=== PATIENT | female | born 1975 | race Caucasian/White ===

== ENCOUNTER 2019-12-11 09:18 | Outpatient (CLI) | payer BC, SELFPAY ==
--- NOTE | ~2019-12-11 | MM_ITS ---
EXAMINATION: MM screening fe BI w cleo HISTORY: Screening mammogram TECHNIQUE: Craniocaudal and mediolateral oblique 3-D tomosynthesis images were obtained and synthetic 2-D images were generated. CAD analysis was submitted and interpreted. COMPARISON: Comparison to multiple prior studies sequentially, with oldest reviewed study dated 09/2015. BREAST PARENCHYMAL COMPOSITION: There are scattered areas of fibroglandular density. FINDINGS: There are new focal asymmetries medially in the right breast on CC view. The left breast is stable without evidence for malignancy. IMPRESSION: 1. New focal asymmetries medially in the right breast on CC view. 2. Additional mammographic views and possible breast ultrasound are recommended. BI-RADS Category 0: Incomplete: Needs additional imaging evaluation. Reviewed, dictated and finalized at location A. IMPRESSION: 1. New focal asymmetries medially in the right breast on CC view. 2. Additional mammographic views and possible breast ultrasound are recommended . BI-RADS Category 0: Incomplete: Needs additional imaging evaluation.
== END 2019-12-11 09:19 | disposition home or self-care (01) ==
LOC: ANHIMG 09:21
PROVIDERS: PCP Internal Medicine; Visit Provider Nurse Practitioner
DX: Z12.31 Encounter for screening mammogram for malignant neoplasm of breast (principal); R92.8 Other abnormal and inconclusive findings on diagnostic imaging of breast
CPT/HCPCS: 77063; 77067

== ENCOUNTER 2020-01-10 12:33 | Outpatient (CLI) | payer BC, SELFPAY ==
--- NOTE | ~2020-01-10 | MMUS_ITS ---
EXAMINATION: MM diagnostic mammo unilat RT, US breast RT complete HISTORY: New focal asymmetry medially in right breast on craniocaudal screening view of 12/11/2019 TECHNIQUE: Additional 3-D tomosynthesis images of the right breast were performed and synthetic 2-D i mages were generated. CAD analysis was submitted and interpreted. High resolution complete right bam st ultrasound was performed. COMPARISON: 12/11/2019 bilateral digital screening mammogram FINDINGS: MAMMOGRAPHIC FINDINGS: No definite reproducible mass is noted mammographically. No architectural distortion or malignant tyra cification, skin thickening or retraction is evident. ULTRASOUND: 2:00 2 cm from nipple: 3 x 4 x 2 mm parallel hypoechoic parallel lesion without internal vascularity or posterior shadowing, likely benign 6:00 3 cm from nipple: 3 x 2 x 4 mm parallel circumscribed hypoechoic lesion without posterior shadow ing, with suggestion of some through transmission, likely a small cyst 11:00 1 cm from nipple: 4 x 4 x 3 mm parallel circumscribed sonolucency without internal vascularity or posterior shadowing. Through transmission suggests a cyst. Subareolar area: 4 x 2 x 3 mm sonolucency without suspicious shadowing, likely a cyst or duct IMPRESSION: 1. Probably benign findings 2. 6 month diagnostic right mammogram and right breast ultrasound follow-up are recommended BI-RADS category 3, probably benign findings. Reviewed, dictated and finalized at location A. IMPRESSION: 1. Probably benign findings 2. 6 month diagnostic right mammogram and right breast ultrasound follow-up are recommended BI-RADS category 3, probably benign findings.
== END 2020-01-10 12:34 | disposition home or self-care (01) ==
PROVIDERS: PCP Internal Medicine; Visit Provider Obstetrics & Gynecology Gynecology
DX: R92.8 Other abnormal and inconclusive findings on diagnostic imaging of breast (principal)
CPT/HCPCS: 76641; 77065

== ENCOUNTER 2020-07-20 11:45 | Outpatient (CLI) | payer BC, SELFPAY ==
--- NOTE | ~2020-07-20 | MMUS_ITS ---
EXAMINATION: MM diagnostic fe RT w pato, US breast RT complete HISTORY: Six-month follow-up of probable benign findings from 01/09/2023 right diagnostic mammogram an d complete right breast ultrasound TECHNIQUE: ML, MLO and craniocaudal 3-D tomosynthesis images of the right breast were performed and s ynthetic 2-D images were generated. CAD analysis was submitted and interpreted. High resolution compl ete right breast ultrasound was performed. COMPARISON: 01/10/2020 right diagnostic digital mammogram and complete right breast ultrasound examina tion FINDINGS: MAMMOGRAPHIC FINDINGS: A circumscribed oval approximately 6.3 mm opacity is noted in the posterior central medial right bam st (craniocaudal Tomosynthesis image 37/80). An approximately 6 mm opacity is suggested in the posterior upper mid right breast (mL Tomosynthesis image 47/83). Possible 4.5 mm mass in upper inner right breast (MLO Tomosynthesis image 56/83). Suggestion of asymmetry/architectural distortion in the upper inner right breast on MLO view (mL Pato synthesis image 50/83), without apparent correlate on the CC projection. ULTRASOUND: There are scattered 5.5 mm lower smaller hypoechoic areas without internal vascularity or suspicious shadowing. IMPRESSION: 1. Probable benign findings 2. 6 month diagnostic right mammogram and right breast ultrasound follow-up are recommended. BI-RADS category 3, probably benign findings. Reviewed, dictated and finalized at location A. MANAGEMENT DIRECTOR IMPRESSION: 1. Probable benign findings 2. 6 month diagnostic right mammogram and right breast ultrasound follow-up are recommended. BI-RADS category 3, probably benign findings.
== END 2020-07-20 11:46 | disposition home or self-care (01) ==
PROVIDERS: PCP Internal Medicine; Visit Provider Obstetrics & Gynecology Gynecology
DX: R92.8 Other abnormal and inconclusive findings on diagnostic imaging of breast (principal)
CPT/HCPCS: 76641; 77061; 77065; G0279

== ENCOUNTER 2020-12-18 15:32 | Outpatient (CLI) | payer BC, SELFPAY ==
--- NOTE | ~2020-12-18 | MM_ITS ---
EXAMINATION: MM diagnostic fe BI w cleo HISTORY: Six-month follow-up for probably benign right breast masses TECHNIQUE: Craniocaudal, mediolateral, and mediolateral oblique 3-D tomosynthesis images of the breas ts were performed and synthetic 2-D images were generated. CAD analysis was submitted and interpreted . COMPARISON: 07/20/2020, 01/10/2020, 12/11/2019, 10/05/2018, 08/29/2017 BREAST PARENCHYMAL COMPOSITION: There are scattered areas of fibroglandular density. FINDINGS: Right breast: There is a stable 8 mm oval, obscured, equal density mass in the posterior third of the central breast 8 cm from the nipple. There has been no suspicious interval change. No new mass is id entified. Left breast: There is no evidence of suspicious mass, calcification, or architectural distortion to suggest malignancy. There has been no suspicious interval change. IMPRESSION: 1. Stable, probably benign right breast mass. 2. Further evaluation with right breast ultrasound is recommended. Patient will return for ultrasound . BI-RADS Category 0: Incomplete: Needs additional imaging evaluation. Reviewed, dictated and finalized at location A. IMPRESSION: 1. Stable, probably benign right breast mass. 2. Further evaluation with right breast ultrasound is recommended. Patient will return for ultrasound. BI-RADS Category 0: Incomplete: Needs additional imaging evaluation.
== END 2020-12-18 15:33 | disposition home or self-care (01) ==
PROVIDERS: PCP Internal Medicine; Visit Provider Nurse Practitioner
DX: R92.8 Other abnormal and inconclusive findings on diagnostic imaging of breast (principal)
CPT/HCPCS: 77062; 77066; G0279

== ENCOUNTER 2021-01-04 13:43 | Outpatient (CLI) | payer BC, SELFPAY ==
--- NOTE | ~2021-01-04 | US_ITS ---
US breast RT complete DATE: 01/04/2021 14:31 INDICATION: Stable probably benign 8 mm obscured equal density right breast mass reported in posterio r third of central breast 8 cm from nipple on 12/28/2020 mammogram TECHNIQUE: Complete right breast ultrasound COMPARISON: 12/28/2020 bilateral diagnostic digital mammogram July 20, 2020 diagnostic right mammogram and complete right breast ultrasound FINDINGS: 12:00 2 cm from nipple: 2.8 mm sonolucency, consistent with small cyst 7:00 4 cm from nipple: Parallel circumscribed 2.1 x 5.3 mm hypoechoic lesion, possibly a small benign lymph node 8:00 6 cm from nipple: Similar hypoechoic 2.7 x 4.1 mm hypoechoic lesion with suggestion of a central fatty hilus, without suspicious internal vascularity or posterior shadowing, benign in appearance IMPRESSION: BI-RADS Category 2: Benign Recommendation: Routine annual mammographic screening Reviewed, dictated and finalized at Location A. Reviewed, dictated and finalized at location A.
== END 2021-01-04 13:44 | disposition home or self-care (01) ==
LOC: ANHIMG 13:48
PROVIDERS: PCP Internal Medicine; Visit Provider Nurse Practitioner
DX: R92.8 Other abnormal and inconclusive findings on diagnostic imaging of breast (principal)
CPT/HCPCS: 76641

== ENCOUNTER 2021-11-19 01:22 | Day surgery (SDC) | payer BC, SELFPAY ==
[2021-11-05 13:37] VITALS: BMI 36.6
--- NOTE | 2021-11-18 14:17 | PM.HPGS ---
History of Present Illness History of Present Illness Consent: Risks, benefits, and alternatives have been discussed and questions answered. Patient agrees to proceed with procedure. Chief complaint: hx of colon polyps Narrative: Clary Zaragoza is a 46 year old female referred for colon cancer screening. Her mother had stage IV colon cancer when she was in her 40s. Review of Systems Review of Systems: All systems reviewed & are unremarkable except as noted in HPI and below PMFSH Social History Social History Smoking status: Never smoker Substance use type: does not use Living arrangements: with family Spiritual care concerns: No Meds Home Medications and Allergies Home Medications Medication Instructions Recorded Confirmed Type sodium sul 1.479 gram-potas ch See Rx Instructions PO .COMPLEX 10/20/21 11/05/21 Rx 0.188 gram-magnes sul 0.225 gram #24 tabs tablet (Sutab) ergocalciferol (vitamin D2) 1,250 1,250 mcg PO DAILY 11/05/21 11/05/21 History mcg (50,000 unit) capsule oxybutynin chloride 10 mg 10 mg PO DAILY 11/05/21 11/05/21 History tablet,extended release 24 hr Allergies Allergy/AdvReac Type Severity Reaction Status Date / Time No Known Allergies Allergy Mild Verified 11/19/21 09:42 Exam Resp: Auscultation: clear to auscultation bilaterally Cardio: Rate: regular rate Rhythm: regular rhythm GI: GI Palp: Yes Soft to palpation and No Tenderness to palpation present (GI) Assessment and Plan Assessment and plan (1) Colon cancer screening: Code(s): Z12.11 - Encounter for screening for malignant neoplasm of colon Status: Acute Assessment and Plan: Colonoscopy with possible biopsy or polypectomy or cautery or injection of substances.
[2021-11-19 09:43] VITALS: BP 115/76; PULSE 73; RESP 16; TEMP 36.3; O2SAT 100; BMI 36.1
[2021-11-19] MEDS: LACTATED RINGERS 1,000 ML 150 ML IV CONT (09:56)
--- NOTE | 2021-11-19 10:14 | P.PNAN_ITS ---
Anes - Initial Pre Proc Eval Procedure: Operation Date: 11/19/21 10:30 Proposed Procedures p Screening Colonoscopy - Vinny Hopkins MD Date/Time: 11/19/21 10:14 Surgeon: Vinny Hopkins MD Pre Op Diagnosis: hx of colon polyps Patient Data Age: 46 Gender: F Height: 1.57 m Weight: 89.7 kg Last Vital Signs Temp 97.3 F L 11/19/21 09:43 Pulse 73 11/19/21 09:43 Resp 16 11/19/21 09:43 BP 115/76 11/19/21 09:43 Pulse Ox 100 11/19/21 09:43 O2 Del Method Room Air 11/19/21 09:43 Allergies Allergy/AdvReac Type Severity Reaction Status Date / Time No Known Allergies Allergy Mild Verified 11/19/21 09:42 Home Medications Medication Instructions Recorded Confirmed Type sodium sul 1.479 gram-potas ch See Rx Instructions PO .COMPLEX 10/20/21 11/05/21 Rx 0.188 gram-magnes sul 0.225 gram #24 tabs tablet (Sutab) ergocalciferol (vitamin D2) 1,250 1,250 mcg PO DAILY 11/05/21 11/05/21 History mcg (50,000 unit) capsule oxybutynin chloride 10 mg 10 mg PO DAILY 11/05/21 11/05/21 History tablet,extended release 24 hr Patient hx anesthesia problems: none Family hx anesthesia problems: none Results Review: All pre-operative results and documents have been reviewed as part of the pre- operative evaluation. PMFSH Social History Social History Smoking status: Never smoker Substance use type: does not use Living arrangements: with family Spiritual care concerns: No Anes - Eval Final PreProcedure Day of Procedure 11/19/21 10:14 Patient weight: obese Heart: regular rate and rhythm Lungs: clear to auscultation Airway: Mallampati scale class II Neurological: alert and oriented Last oral intake: >/= 8 hours ASA classification: II Emergent: no Anesthetic plan: proceed Anesthesia type and monitoring: general GIVS and standard monitoring Results Review: All pre-operative results and documents have been reviewed as part of the pre- operative evaluation. Informed Consent: The patient's anesthetic plan and its attendant risks and benefits were discussed with the patient/family/POA. Questions were solicited and answers provided to the satisfaction of the patient/family/POA.
[2021-11-19] MEDS: SIMETHICONE ORAL SUSPENSION 20 MG/0.3 ML 30 ML BOTTLE 0.6 ML IRRIGATION (10:33)
[2021-11-19 10:40] VITALS: BP 92/59; PULSE 83; RESP 26; O2SAT 98
[2021-11-19 10:50] VITALS: BP 111/71; PULSE 67; RESP 20; O2SAT 95
[2021-11-19 11:00] VITALS: BP 113/82; PULSE 69; RESP 19; O2SAT 96
== END 2021-11-19 11:09 | disposition home or self-care (01) ==
PROVIDERS: PCP Internal Medicine; Visit Provider Internal Medicine Gastroenterology
PROC: 0DJD8ZZ Inspection of Lower Intestinal Tract, Via Natural or Artificial Opening Endoscopic (ICD-10-PCS; CPT 45378; principal; 2021-11-19 10:30)
DX: Z12.11 Encounter for screening for malignant neoplasm of colon (principal); K62.1 Rectal polyp; Z80.0 Family history of malignant neoplasm of digestive organs; E66.9 Obesity, unspecified; Z68.36 Body mass index [BMI] 36.0-36.9, adult
CPT/HCPCS: 45380; 88305; J2704; J7120

== ENCOUNTER 2022-02-16 14:45 | Outpatient (CLI) | payer BC, SELFPAY ==
--- NOTE | ~2022-02-16 | MM_ITS ---
EXAMINATION: MM screening fe BI w cleo HISTORY: Screening mammogram TECHNIQUE: Craniocaudal and mediolateral oblique 3-D tomosynthesis images were obtained and synthetic 2-D images were generated. CAD analysis was submitted and interpreted. COMPARISON: 01/04/2021 complete right breast ultrasound examination 12/18/2020 bilateral diagnostic mammogram 07/20/2020 diagnostic right mammogram and complete right breast ultrasound examination 01/10/2020 diagnostic right mammogram and complete right breast ultrasound 12/11/2019, 10/05/2018 bilateral screening mammogram examinations BREAST PARENCHYMAL COMPOSITION: There are scattered areas of fibroglandular density. FINDINGS: Approximately 4.6 x 7.7 mm opacity is noted in the very posterior aspect of the inner mid r ight breast. Diagnostic right mammogram and right breast ultrasound examination are recommended Otherwise there is no evidence of suspicious mass, calcification, or architectural distortion to sugg est malignancy in either breast. There has been no other suspicious interval change. IMPRESSION: 1. 0.6 x 7.7 mm opacity very posterior aspect of inner mid right breast 2. Diagnostic right mammogram and right breast ultrasound examination are recommended BI-RADS Category 0: Incomplete: Needs additional imaging evaluation. Reviewed, dictated and finalized at location A. IMPRESSION: 1. 0.6 x 7.7 mm opacity very posterior aspect of inner mid right breast 2. Diagnostic right mammogram and right breast ultrasound examination are recom mended BI-RADS Category 0: Incomplete: Needs additional imaging evaluation.
== END 2022-02-16 14:46 | disposition home or self-care (01) ==
PROVIDERS: PCP Internal Medicine; Visit Provider Obstetrics & Gynecology Gynecology
DX: Z12.31 Encounter for screening mammogram for malignant neoplasm of breast (principal); R92.8 Other abnormal and inconclusive findings on diagnostic imaging of breast
CPT/HCPCS: 77063; 77067

== ENCOUNTER 2022-03-09 12:44 | Outpatient (CLI) | payer BC, SELFPAY ==
--- NOTE | ~2022-03-09 | MMUS_ITS ---
EXAMINATION: MM diagnostic fe RT w cleo, US breast RT complete HISTORY: 0.6 x 7.7 mm asymmetric mammographic opacity in the very posterior aspect of the inner mid r ight breast on 02/16/2022 screening mammogram TECHNIQUE: Additional 3-D tomosynthesis images of the right breast were performed and synthetic 2-D i mages were generated. CAD analysis was submitted and interpreted. High resolution complete right bam st ultrasound including all 4 quadrants and subareolar area was performed. COMPARISON: 02/16/2022 bilateral screening mammogram 12/28/2020 diagnostic bilateral mammogram and complete right breast ultrasound examination FINDINGS: MAMMOGRAPHIC FINDINGS: No suspicious reproducible mass or architectural distortion is evident on these supplemental views. T he asymmetric density appears to represent probable normal fibroglandular stroma. ULTRASOUND: No suspicious mass or shadowing, cyst or other significant sonographic abnormality of the right breas t is detected. IMPRESSION: 1. No mammographic evidence of malignancy 2. Routine mammographic screening is recommended BI-RADS Category 1: Negative Reviewed, dictated and finalized at location A. IMPRESSION: 1. No mammographic evidence of malignancy 2. Routine mammographic screening is recommended BI-RADS Category 1: Negative
== END 2022-03-09 12:45 | disposition home or self-care (01) ==
PROVIDERS: PCP Internal Medicine; Visit Provider Obstetrics & Gynecology Gynecology
DX: R92.8 Other abnormal and inconclusive findings on diagnostic imaging of breast (principal)
CPT/HCPCS: 76641; 77061; 77065; G0279

== ENCOUNTER 2023-06-01 09:00 | Outpatient (CLI) | payer BC, SELFPAY ==
--- NOTE | ~2023-06-01 | MM_ITS ---
EXAMINATION: MM screening fe BI w cleo HISTORY: Screening mammogram TECHNIQUE: Craniocaudal and mediolateral oblique 3-D tomosynthesis images were obtained and synthetic 2-D images were generated. CAD analysis was submitted and interpreted. COMPARISON: 03/09/2022 diagnostic right mammogram and complete right breast ultrasound examination, re ported negative 02/16/2022 bilateral screening mammogram 01/04/2021 complete right breast ultrasound examination 12/18/2020 diagnostic bilateral mammogram 07/20/2020 diagnostic right mammogram and complete right breast ultrasound examination 01/10/2020 diagnostic right mammogram and complete right breast ultrasound examination 12/11/2019 bilateral screening mammogram BREAST PARENCHYMAL COMPOSITION: There are scattered areas of fibroglandular density. FINDINGS: There is no evidence of suspicious mass, calcification, or architectural distortion to sugg est malignancy in either breast. There has been no suspicious interval change. IMPRESSION: 1. No mammographic evidence of malignancy. 2. Recommend routine screening mammography in one year. BI-RADS Category 1: Negative Reviewed, dictated and finalized at location A. HOUSE SUPERVISOR
== END 2023-06-01 09:01 | disposition home or self-care (01) ==
PROVIDERS: PCP Internal Medicine; Visit Provider Advanced Practice Midwife
DX: Z12.31 Encounter for screening mammogram for malignant neoplasm of breast (principal)
CPT/HCPCS: 77063; 77067

== ENCOUNTER 2023-12-18 08:09 | Outpatient (CLI) | payer BC, SELFPAY ==
--- NOTE | ~2023-12-18 | US_ITS ---
US pelvic complete w TV Ordering provider: Lina Gongora CNM History: . 1 cm firm mass,round,8-10 cm inner vagina . Comparison: None. Technique: Transabdominal and endovaginal ultrasound of the pelvis (Doppler ultrasound interrogation techniques used as needed for this exam.) FINDINGS: CERVIX: Normal. UTERUS: Measures 11x 5.2x 6.3 cm in length which is within normal limits and is anteverted. No myome trial masses. ENDOMETRIUM: Normal in thickness measuring 1.4 mm. (Note: the premenopausal endometrium may measure u p to 16 mm when in the secretory phase.) No endometrial masses, cysts or fluid. CUL DE SAC: No free fluid. RIGHT OVARY: Not visualized. LEFT OVARY: Normal in size measuring 4.5x 2.1x 2.50 cm. Normal echotexture. Doppler vascular flow pre sent. Complex area with blood flow measuring 2.1 x 2.2 x 2 cm. ADNEXA: Normal. No mass. IMPRESSION: Complex cyst in the left ovary most likely hemorrhagic. Follow-up advised. Otherwise, normal pelvic u ltrasound. Reviewed, dictated and finalized at location A. IMPRESSION: Complex cyst in the left ovary most likely hemorrhagic. Follow-up advised. Othe rwise, normal pelvic ultrasound.
== END 2023-12-18 08:10 ==
PROVIDERS: PCP Family Medicine; Visit Provider Advanced Practice Midwife
DX: R19.00 Intra-abdominal and pelvic swelling, mass and lump, unspecified site (principal); N83.202 Unspecified ovarian cyst, left side
CPT/HCPCS: 76830; 76856

== ENCOUNTER 2024-01-29 14:55 | Outpatient (CLI) | payer BC, SELFPAY ==
--- NOTE | ~2024-01-29 | US_ITS ---
EXAMINATION: US pelvic complete w TV DATE: 01/29/2024 15:27 INDICATION: Left ovarian cyst and vaginal wall mass. TECHNIQUE: Multiple transabdominal and transvaginal sonographic images of the pelvis were obtained. COMPARISON: Ultrasound 12/18/2023 FINDINGS: TRANSABDOMINAL ULTRASOUND: The uterus measures 10.3 x 5.5 x 6.3 cm. There is no free fluid in the pelvis. TRANSVAGINAL ULTRASOUND: The endometrial complex measures 15 mm in thickness. The right ovary measures 3.0 x 1.9 x 2.5 cm. The left ovary measures 2.6 x 1.6 x 2.6 cm. There is normal vascular flow in the ovaries. At the cervix, there is a 1.8 x 2.0 x 2.8 cm hypoechoic subserosal mass. IMPRESSION: 1. 2.8 cm subserosal mass of the cervix, likely a fibroid. 2. Normal ovaries. Reviewed, dictated and finalized at location A.
== END 2024-01-29 14:56 ==
LOC: MICIMG 14:56
PROVIDERS: PCP Advanced Practice Midwife; Visit Provider Advanced Practice Midwife
DX: N83.202 Unspecified ovarian cyst, left side (principal)
CPT/HCPCS: 76830; 76856

== ENCOUNTER 2024-06-03 08:50 | Outpatient (CLI) | payer BC, SELFPAY ==
--- NOTE | ~2024-06-03 | MM_ITS ---
EXAMINATION: MM screening [facility] BI w cleo HISTORY: Screening TECHNIQUE: Craniocaudal and mediolateral oblique 3-D tomosynthesis images were obtained and synthetic 2-D images were generated. CAD analysis was submitted and interpreted. COMPARISON: Examination was compared with multiple prior studies, performed most recently on 06/01/20 and dating back to 12/11/2019 BREAST PARENCHYMAL COMPOSITION: The breasts are extremely dense, which lowers the sensitivity of mamm ography. FINDINGS: Bulky calcification within the upper inner right breast, stable and benign in appearance. Otherwise stable parenchymal pattern without suspicious microcalcifications, architectural distortion , discrete masses or significant asymmetry. IMPRESSION: 1. No mammographic evidence of malignancy. 2. Recommend routine screening mammography in one year. BI-RADS Category 2: Benign findings. Reviewed, dictated and finalized at location A. L HOLE GAUGER
--- OUTSIDE RECORDS SUMMARY | 2024-06-10 22:13 | XMS_ITS | Encounter Summary ---
Author Organization [facility] Address [address] [place] [address] Phone Care Team Providers Care Clinical Education Specialist Name Role Phone Unavailable Primary Care Provider Unavailabl e Reason for Visit * Reason Onset Date Comments COVID-19 06/21/2020 Cough 06/21/2020 Encounter Details Date Type Department Care Team (Late st Contact Info) Description 06/21/2020 Nurse Triage [facility] Digital Contact [facility] [address] [place] [address] Kasi Couch MD [address] [place] [address] [address] [place] [address] COVID-19; Cough Social History Tobacco Use Types Packs/Day Years Used Date Smoking Tobacco: Never Assessed Comments Unknown Sex and Gender Information Value Date Recorded Sex Assigned at Not on file Legal Sex Female 9:31 AM CDT Gender Identity Not on file Sexual Orientation Not on file COVID-19 Exposure Response Date Recorded In the last month, have you been in contact with someone who was confirmed or suspected to have Coronavirus / COVID-19? No / Unsure 06/21/2020 9:12 AM SKI TOPPER documented as of this encounter Miscellaneous Notes * Telephone Encounter - Cassandra Lopez RN - 06/21/2020 9:12 AM CST Images from the original note were not included. Travel Screening Question Response In the last month, have you been in contact with someone who was confirmed or suspected to have Coronavirus / COVID-19? No / Unsure Have you had a COVID-19 viral test in the last 14 days? Yes - Positive result Do you have any of the following new or worsening symptoms? Cough;Loss of smell;Loss of taste;Shortness of breath Have you traveled internationally in the last month? No Travel History Travel since 05/21/20 No documented travel since 05/21/20 Is the caller new to [facility]? No Screening Results: COVID-19 LIKE SYMPTOMS Nurse to triage SITUATION: Patient calling with cough, nasal congestion BACKGROUND: Patient is positive for covid and would like to ask questions ASSESSMENT: Symptom Description / Location: cough, nasal congestions, chest tightness with mild pain and mild shortness of breath Pain (0-10): mild chest tightness and pressure ( feels like indigestion Temp: denies temperature Treatment / Response: none RECOMMENDATION:Reviewed guideline home care advice. Advised that patient isolate from other family members that they live with.Reviewed CDC isolation recommendations. Encouraged patient to practice wearing a mask,social distancing. Good hand washing. Discussed eating on disposable dishes, not preppi ng food for others, cleaning all surfaces in home that they touch when moving through the home. Advised that patient call back if fever elevated to 103, shortness of breath occurs. Discussed pushing fluids, taking vitamin C , taking tylenol for pain and fever. Reviewed hotline number with patient [phone] and told patient to call back anytime that they have questions and they will be put in touch with a nurse 02/01. Caller verbalizes understanding of the above information. CASSANDRA LOPEZ RN Reason for Disposition ??? [1] COVID-19 infection diagnosed or suspected AND [2] mild symptoms (fever, cough) AND [3] no trouble breathing or other complications Protocols used: CORONAVIRUS (COVID-19) - DIAGNOSED OR [id number] TOPPER documented in this encounter Plan of Treatment Not on file documented as of this encounter Visit Diagnoses Not on filedocumented in this encounter
--- OUTSIDE RECORDS SUMMARY | 2024-06-10 22:13 | XMS_ITS | Encounter Summary ---
Author Organization [facility] Address [address] [place] [address] Care Team Providers Care Asset Protection Manager Name Role Phone Unavailable Primary Care Provider Unavailabl e Encounter Details Date Type Department Care Team (Late st Contact Info) Description 04/08/2020 10:00 AM CDT Rapid Evaluation [place] [facility] Community Testing [facility] [address] [place] [address] Social History Tobacco Use Types Packs/Day Years Used Date Smoking Tobacco: Never Assessed Comments Unknown Sex and Gender Information Value Date Recorded Sex Assigned at Not on file Legal Sex Female 9:31 AM CDT Gender Identity Not on file Sexual Orientation Not on file documented as of this encounter Plan of Treatment Not on file documented as of this encounter Visit Diagnoses Not on filedocumented in this encounter
--- OUTSIDE RECORDS SUMMARY | 2024-06-10 22:13 | XMS_ITS | Encounter Summary ---
Author Organization [facility] Address [address] [place] [address] Care Team Providers Care Green Chain Worker Name Role Phone Unavailable Primary Care Provider Unavailabl e Reason for Visit * Reason Comments URI for 14 days Encounter Details Date Type Department Care Team (Late st Contact Info) Description 07/07/2018 10:40 AM LECTURER IN COMPUTER SCIENCE Office Visit [facility] AT [address] [phone] Provider, Johny Garibay [place] Lower respiratory infection (Primary Dx) Social History Tobacco Use Types Packs/Day Years Used Date Smoking Tobacco: Former Smokeless Tobacco: Never Sex and Gender Information Value Date Recorded Sex Assigned at Not on file Gender Identity Not on file Sexual Orientation Not on file documented as of this encounter Last Filed Vital Signs Vital Sign Reading Time Taken Comments Blood Pressure 112/76 07/07/2018 10:50 AM LECTURER IN COMPUTER SCIENCE Pulse 87 07/07/2018 10:50 AM LECTURER IN COMPUTER SCIENCE Temperature 37.2 ??C (98.9 ??F) 07/07/2018 10:50 AM C Respiratory Rate 16 07/07/2018 10:50 AM LECTURER IN COMPUTER SCIENCE Oxygen Saturation 98% 07/07/2018 10:50 AM LECTURER IN COMPUTER SCIENCE Inhaled Oxygen Concentration - - Weight 85.3 kg (188 lb) 07/07/2018 10:50 AM LECTURER IN COMPUTER SCIENCE Height 157.5 cm (5' 2 ) 07/07/2018 10:50 AM LECTURER IN COMPUTER SCIENCE Body Mass Index 34.39 07/07/2018 10:50 AM LECTURER IN COMPUTER SCIENCE documented in this encounter Patient Instructions * Patient Instructions* Blayne Simeon APRN-ADDISON - 07/07/2018 11:03 AM LECTURER IN COMPUTER SCIENCE Acute Cough LOADING SHOVEL OILER: An acute cough can last up to 3 weeks. Common causes of an acute cough include a cold, allergies, or a lung infection. Seek care immediately if: ?? You have trouble breathing or feel short of breath. ?? You cough up blood, or you see blood in your mucus. ?? You faint or feel weak or dizzy. ?? You have chest pain when you cough or take a deep breath. ?? You have new wheezing. Contact your healthcare provider if: ?? You have a fever. ?? Your cough lasts longer than 4 weeks. ?? Your symptoms do not improve with treatment. ?? You have questions or concerns about your condition or care. Treatment: An acute cough usually goes away on its own. Ask your healthcare provider about medicines you can take to decrease your cough. You may need medicine to stop the cough, decrease swelling inyour airways, or help open your airways. Medicine may also be given to help you cough up mucus. If you have an infection caused by bacteria, you may need antibiotics. Manage your symptoms: ?? Do not smoke and stay away from others who smoke. Nicotine and other chemicals in cigarettes andcigars can cause lung damage and make your cough worse. Ask your healthcare provider for information if you currently smoke and need help to quit. E-cigarettes or smokeless tobacco still contain nicotine. Talk to your healthcare provider before you use these products. ?? Drink extra liquids as directed. Liquids will help thin and loosen mucus so you can cough it up.Liquids will also help prevent dehydration. Examples of good liquids to drink include water, fruit juice, and broth. Do not drink liquids that contain caffeine. Caffeine can increase your risk for dehydration. Ask your healthcare provider how much liquid to drink each day. ?? Rest as directed. Do not do activities that make your cough worse, such as exercise. ?? Use a humidifier or vaporizer. Use a cool mist humidifier or a vaporizer to increase air moisture in your home. This may make it easier for you to breathe and help decrease your cough. ?? Eat 2 to 5 mL of honey 2 times each day. Honey can help thin mucus and decrease your cough. ?? Use cough drops or lozenges. These can help decrease throat irritation and your cough. Follow up with your healthcare provider as directed: Write down your questions so you remember to ask them during your visits. ?? Copyright [employer] 2018 Information is for End User's use only and may not be sold, redistributed or otherwise used for commercial purposes. All illustrations and images included in CareNotes?? are the copyrighted property of [employer] or [employer] The above information is an blind aide only. It is not intended as medical advice for individual conditions or treatments. Talk to your doctor, nurse or pharmacist before following any medical regimen to see if it is safe and effective for you. URER IN COMPUTER SCIENCE documented in this encounter Progress Notes * Blayne Simeon APRN-CNP - 07/07/2018 10:50 AM CST Subjective: Clary Zaragoza is a 42 y.o. female who presents for evaluation: Chief Complaint Patient presents with ??? URI for 14 days Primary Care Physician is Kasi Couch MD. Symptoms include Chest cold , started 14 days, can't take deep breath due to cough, worse at nighttime. Feels like she is getting swollen tender gland on left side of neck. Pt also gets phlegm up with cough at times, and it is a yellow color. Onset of symptoms was 14 days ago, unchanged since that time. no fever. She is drinking plenty of fluids. Evaluation to date: none. Treatment to date: mucine- d, otc expectorant, steam inhalation, fluids No Known Allergies Outpatient Prescriptions Marked as Taking for the 07/07/18 encounter (Office Visit) with Provider, Johny Burgess Medication Sig ??? azithromycin (ZITHROMAX) 250 mg tablet Take by mouth as directed for 5 days 2 tablets day 1, then 1 tablet daily for 4 days ??? benzonatate (TESSALON) 200 MG capsule Take 1 capsule by mouth 3 times daily as needed for Cough ??? OXYBUTYNIN CHLORIDE PO ??? Pediatric Multiple Vit-Vit C (VITAMIN DAILY PO) ??? predniSONE (DELTASONE) 20 MG tablet Take 2 tablets by mouth once daily for 5 days Past Medical History: Diagnosis Date ??? Overactive bladder Social History Social History ??? Marital status: Spouse name: N/A ??? Number of children: N/A ??? Years of education: N/A Occupational History ??? Not on file. Social History Main Topics ??? Smoking status: Former Smoker ??? Smokeless tobacco: Never Used ??? Alcohol use Not on file ??? Drug use: Not on file ??? Sexual activity: Not on file Other Topics Concern ??? Not on file Social History Narrative ??? No narrative on file Medications reviewed. Review of Systems Pertinent items are noted in HPI Constitutional: Negative Eyes: Negative Ears, nose, mouth, and throat: Negative Respiratory: Positive for acute cough, yellowish sputum production, pt feels like she can't take a deep breath due to it triggering cough, cough is worse at night time. Cardiovascular: Negative Gastrointestinal: Negative Hematologic/lymphatic: Negative Musculoskeletal:Negative Neurological: Negative Objective: BP 112/76 (BP SITE: LEFT ARM, BP POSITION: SITTING, BP CUFF SIZE: 11) Pulse 87 Temp 98.9 ??F (37.2 ??C) (Oral) Resp 16 Ht 1.575 m (5' 2 ) Wt 85.3 kg (188 lb) SpO2 98% BMI 34.39 kg/m2 Skin: Physical Exam Exam General appearance: alert, cooperative, no distress, oriented to person, place, and time, wellappearing Head: normocephalic, without trauma Eyes: sclera and conjunctiva clear, EOMI and PERRLA, lids normal Ears: canals clear, tympanic membranes normal, hearing intact to voice Nose: nares open; no septal deviation is noted, nasal mucosa not inflamed, no maxillary tenderness Throat: no mucous membrane abnormalities, lips, mucosa, and tongue normal; teeth and gums normal Neck: range of motion is intact, Nodes: mild, benign-appearing anterior cervical adenopathy, tender to palpation on left. Lungs: breath sounds slightly diminished on left lower lobe; no rales or wheezes, respirations are unlabored. Non productive cough noted during exam. Pt is able to hold a conversation without difficulty. Heart: regular rhythm, normal S1 and S2, without murmurs, gallops or rubs Neurologic: mental status normal; alert and oriented X 3 Assessment: . Encounter Diagnoses Name Primary? Lower respiratory infection Yes Plan: Discussed dx and tx of URIs Discussed the importance of avoiding unnecessary abx therapy. Discussed viral cough can last up to 4 weeks. Suggested symptomatic OTC remedies. Antibiotics per orders. RTC prn. Drink plenty of fluids and get plenty of rest. If you begin to run a fever or if symptoms worsen, such as difficulty breathing or shortness of breath, seek medial attention as soon as possible. Honey can be used to help with cough. The honey (2.5 to 5 ml [0.5 to 1 teaspoon]) can be given straight or diluted in liquid (eg, tea, juice) Humidifier may be helpful especially at night If symptoms persist or worsen at any time, follow up with a health care provider, clinic or emergency care Risk and possible side effects of prednisone discussed with patient. Pt consents to treatment. Pt. Educated on how to take medication. Continue to follow up with Kasi Couch MD as directed. After Visit Summary reviewed with patient. The patient indicates understanding of these issues and agrees with the plan. Patient discharged to Home .PHILL Mcrae 07/07/2018 12:25 PM Orders Placed This Encounter ??? PULSE OXIMETRY - POINT OF CARE (AMB) ??? azithromycin (ZITHROMAX) 250 mg tablet Sig: Take by mouth as directed for 5 days 2 tablets day 1, then 1 tablet daily for 4 days Dispense: 1 kit Refill: 0 ??? predniSONE (DELTASONE) 20 MG tablet Sig: Take 2 tablets by mouth once daily for 5 days Dispense: 10 tablet Refill: 0 ??? benzonatate (TESSALON) 200 MG capsule Sig: Take 1 capsule by mouth 3 times daily as needed for Cough Dispense: 30 capsule Refill: 0 Recent Results (from the past 24 hour(s)) PULSE OXIMETRY - POINT OF CARE (AMB) Collection Time: 07/07/18 12:24 PM Result Value Ref Range Oximetry POCT 98 0 - 100 % QC Verified Yes Yes URER IN COMPUTER SCIENCE documented in this encounter Miscellaneous Notes * Addendum Note - Blayne Simeon APRN-CNP - 07/07/2018 12:25 PM CSTAddended by: BLAYNE SIMEON on: 07/07/2018 12:25 PM Modules accepted: Orders URER IN COMPUTER SCIENCE documented in this encounter Plan of Treatment Not on file documented as of this encounter Procedures Procedure Name Priority Date/Time Associated Diagnosis Comments PULSE OXIMETRY - POINT OF CARE (AMB) Routine 07/07/2018 12:24 PM LECTURER IN COMPUTER SCIENCE Lower respiratory infection documented in this encounter Results * PULSE OXIMETRY - POINT OF CARE (AMB) (07/07/2018 12:24 PM LECTURER IN COMPUTER SCIENCE) Oximetry POCT 98 0 - 100 % QC Verified Yes Yes Blood BLOOD SPECIMEN / Unknown 07/07/2018 12:24 PM LECTURER IN COMPUTER SCIENCE Blayne Simeon TIMING ADJUSTER-SAMMYING MACHINE OPERATOR LAB - POINT OF CA RE ORDERABLES documented in this encounter Visit Diagnoses Diagnosis Lower respiratory infection- Primary Other diseases of respiratory system, not elsewhere classified documented in this encounter
--- OUTSIDE RECORDS SUMMARY | 2024-06-10 22:13 | XMS_ITS | Encounter Summary ---
Author Organization [facility] Care Team Providers Care Mine Geologist Name Role Phone Unavailable Primary Care Provider Unavailabl e Encounter Details Date Type Department Care Team (Latest Contact Info) Description 06/21/2020 Travel Social History Tobacco Use Types Packs/Day Years [...] COVID-19? No / Unsure 06/21/2020 9:12 AM MANAGER ADVANCED documented as of this encounter Plan of Treatment Not on file documented as of this encounter Visit Diagnoses Not on filedocumented in this encounter
--- OUTSIDE RECORDS SUMMARY | 2024-06-10 22:13 | XMS_ITS | Encounter Summary ---
Author Organization [facility] Address [address] [place] [address] Care Team Providers Care Tool Maintenance Technician Name Role Phone Unavailable Primary Care Provider Unavailabl e Encounter Details Date Type Department Care Team (Late st Contact Info) Description 05/31/2020 11:00 AM FINANCIAL COORDINATOR Rapid Evaluation [place] [facility] Community Testing [facility] [address] [place] [address] Social History Tobacco Use Types Packs/Day Years [...]
--- OUTSIDE RECORDS SUMMARY | 2024-06-10 22:13 | XMS_ITS | Clinical Summary ---
Author Organization [facility] Address [address] [place] [address] Care Team Providers Care Packing Tractor Machine Operator Name Role Phone Unavailable Primary Care Provider Unavailabl e Source Comments [facility],non-owned Affiliates and Associated Physician Practices is amultiple site organization consisting of ambulatory clinics and hospital sitesin [place], [place], [place] and [place]. This disclosure is being madepursuant to the Care Everywhere program and may not contain all information available regarding this patient. Last updated 18.[facility] Allergies No known active allergies Medications * Be aware that medications may not be up to date on this document. Alwaysverify current medications with the patient. Medication Sig Dispensed Refills Start Date End Date Status OXYBUTYNIN CHLORIDE PO Active Pediatric Multiple Vit-Vit C (VITAMIN DAILY PO) Active benzonatate (TESSALON) 200 MG capsuleIndications:Lo wer respiratory infection Take 1 capsule by mouth 3 times daily as needed for Cough 30 capsule 07/07/2018 Active Family History Medical History Relation Name Comments Cancer - Colon Mother Relation Name Status Comments Mother Social History Tobacco Use Types Packs/Day Years Used Date Smoking Tobacco: Former Smokeless Tobacco: Never Sex and Gender Information Value Date Recorded Sex Assigned at Not on file Gender Identity Not on file Sexual Orientation Not on file Last Filed Vital Signs Vital Sign Reading Time Taken Comments Blood Pressure 112/76 07/07/2018 10:50 AM TECHNICAL SALES SUPPORT SPECIALIST Pulse 87 07/07/2018 10:50 AM TECHNICAL SALES SUPPORT SPECIALIST Temperature 37.2 ??C (98.9 ??F) 07/07/2018 10:[address] Respiratory Rate 16 07/07/2018 10:50 AM TECHNICAL SALES SUPPORT SPECIALIST Oxygen Saturation 98% 07/07/2018 10:50 AM TECHNICAL SALES SUPPORT SPECIALIST Inhaled Oxygen Concentration - - Weight 85.3 kg (188 lb) 07/07/2018 10:50 AM TECHNICAL SALES SUPPORT SPECIALIST Height 157.5 cm (5' 2 ) 07/07/2018 10:50 AM TECHNICAL SALES SUPPORT SPECIALIST Body Mass Index 34.39 07/07/2018 10:50 AM TECHNICAL SALES SUPPORT SPECIALIST Plan of Treatment Health Maintenance Due Date Last Done Comments COLOGUARD (AGES 45-75) - COL ON CA SCREENING 1976 COLON MONITORING 1976 COLONOSCOPY - COLON CA SCREENING 1976 CT COLONOGRAPHY - COLON CA SCREENING 1976 Colorectal Cancer Screening 1976 FIT - COLON CA SCREENING 1976 FLEX SIG - COLON CA SCREENING 1976 LIPID TESTING 1976 MAMMOGRAM 1976 HIV SCREENING 08/17/1991 HEPATITIS C SCREENING 08/12/1994 DTAP/TDAP/TD VACCINES (1 - Tdap) 08/17/1995 HEPATITIS B VACCINE (1 of 3 - 19+ 3-dose series) 08/17/1995 PAP with HPV 2006 SCREENING FOR DIABETES 07/07/2018 DEPRESSION SCREENING 06/12/2023 COVID-19 VACCINE (1 - 2023-2 5 season) 2024 INFLUENZA VACCINE (#1) 2024 ZOSTER VACCINE (1 of 2) 2026 HIB VACCINE Aged Out No longer eligi ble based on patient's age to complete this topic HPV VACCINE Aged Out No longer eligi ble based on patient's age to complete this topic MENINGOCOCCAL VACCINE Aged Out No mili ezekiel eligible based on patient's age to complete this topic PNEUMOCOCCAL VACCINE Aged Out No long er eligible based on patient's age to complete this topic
--- OUTSIDE RECORDS SUMMARY | 2024-06-10 22:13 | XMS_ITS | Encounter Summary ---
Author Organization [facility] Address [address] [place] [address] Care Team Providers Care Senior Materials Scientist Name Role Phone Unavailable Primary Care Provider Unavailabl e Encounter Details Date Type Department Care Team (Late st Contact Info) Description 06/19/2020 Lab Requisition [facility] Community Testing [facility] [address] [place] [address] [place] [address] [place] [address] Social History Tobacco Use Types Packs/Day Years [...] COVID-19? No / Unsure 06/21/2020 9:12 AM SCIENTIFIC PROCESS OPERATOR documented as of this encounter Plan of Treatment Not on file documented as of this encounter Procedures Procedure Name Priority Date/Time Associated Diagnosis Comments SARS-COV-2 PCR [facility] ONLY Routine 06/19/2020 3:18 PM SCIENTIFIC PROCESS OPERATOR documented in this encounter Visit Diagnoses Not on filedocumented in this encounter
--- OUTSIDE RECORDS SUMMARY | 2024-06-10 22:13 | XMS_ITS | Clinical Summary ---
Author Organization [facility] Address [address] [place] [address] Care Team Providers Care Microchip Specialist Name Role Phone Unavailable Primary Care Provider Unavailabl e Social History Tobacco Use Types Packs/Day Years Used Date Smoking Tobacco: Never Assessed Comments Unknown Sex and Gender Information Value Date Recorded Sex Assigned at Not on file Legal Sex Female 9:31 AM CDT Gender Identity Not on file Sexual Orientation Not on file Plan of Treatment Health Maintenance Due Date Last Done Comments Hepatitis C Virus (HCV) Screening 1976 TdaP Immunization 1976 Hepatitis B Immunization (1 of 3 - 19+ 3-dose series) 08/17/1995 Pap Smear 1997 Cervical Cancer Screening (CCS) 2006 HPV/Cotest 2006 Discussion re Starting/Frequency of Mammograms 2016 Colonoscopy 2021 Colorectal Cancer Screening 2021 SARS-COV-2 Immunization ( season) 2023 05/20/2021, 07/31/2020, 07/10/2020 Influenza Immunization (Seas on Ended) 2024 03/27/2020, 02/15/2016 Meningococcal Immunization (ACWY) Aged Out No longer eligible b ased on patient's age to complete this topic Pneumococcal Immunization Combined Aged Out No longer eligible b ased on patient's age to complete this topic Rotavirus Immunization Aged Out No lo nger eligible based on patient's age to complete this topic Insurance [facility] [employer] on file
--- OUTSIDE RECORDS SUMMARY | 2024-06-10 22:13 | XMS_ITS | Encounter Summary ---
Author Organization [facility] Address [address] [place] [address] Care Team Providers Care Sign Hanger Supervisor Name Role Phone Unavailable Primary Care Provider Unavailabl e Reason for Visit * Reason Onset Date Comments Follow-up 07/09/2018 Encounter Details Date Type Department Care Team (Late st Contact Info) Description 07/09/2018 Telephone [facility] AT [address] [phone] ProviderJohny Vernon Follow-up Social History Tobacco Use Types Packs/Day Years [...]
--- OUTSIDE RECORDS SUMMARY | 2024-06-10 22:13 | XMS_ITS | Patient Health Summary ---
Author Organization [facility] Address [address] [place] [address] Care Team Providers Care Marketing Sales Manager Name Role Phone Unavailable Primary Care Provider Unavailabl e Note from [facility],non-owned Affiliates and Associated Physician Practices is amultiple site organization consisting of ambulatory clinics and hospital sitesin [place], [place], [place] and [place]. This disclosure is being madepursuant to the Care Everywhere program and may not contain all information available regarding this patient. Last updated 18.[facility] Allergies No known active allergies Medications * Be aware that medications may not be up to date on this document. Alwaysverify current medications with the patient. * OXYBUTYNIN CHLORIDE PO * Pediatric Multiple Vit-Vit C (VITAMIN DAILY PO) * benzonatate (TESSALON) 200 MG capsule(Started 07/07/2018) Take 1 capsule by mouth 3 times daily as needed for Cough Social History Tobacco Use Types Packs/Day Years Used Date Smoking Tobacco: Former Smokeless Tobacco: Never Sex and Gender Information Value Date Recorded Sex Assigned at Not on file Gender Identity Not on file Sexual Orientation Not on file Last Filed Vital Signs Vital Sign Reading Time Taken Comments Blood Pressure 112/76 07/07/2018 10:50 AM ELECTRICAL INSTRUMENT TECHNICIAN Pulse 87 07/07/2018 10:50 AM ELECTRICAL INSTRUMENT TECHNICIAN Temperature 37.2 ??C (98.9 ??F) 07/07/2018 10:[address] Respiratory Rate 16 07/07/2018 10:50 AM ELECTRICAL INSTRUMENT TECHNICIAN Oxygen Saturation 98% 07/07/2018 10:50 AM ELECTRICAL INSTRUMENT TECHNICIAN Inhaled Oxygen Concentration - - Weight 85.3 kg (188 lb) 07/07/2018 10:50 AM ELECTRICAL INSTRUMENT TECHNICIAN Height 157.5 cm (5' 2 ) 07/07/2018 10:50 AM ELECTRICAL INSTRUMENT TECHNICIAN Body Mass Index 34.39 07/07/2018 10:50 AM ELECTRICAL INSTRUMENT TECHNICIAN Procedures * PULSE OXIMETRY - POINT OF CARE (AMB)(Performed 07/07/2018) Performed for Lower respiratory infection Results * PULSE OXIMETRY - POINT OF CARE (AMB) (07/07/2018 12:24 PM ELECTRICAL INSTRUMENT TECHNICIAN) Oximetry POCT 98 0 - 100 % QC Verified Yes Yes Blood BLOOD SPECIMEN / Unknown 07/07/2018 12:24 PM ELECTRICAL INSTRUMENT TECHNICIAN Arnaud Simeon PERMASTONE MECHANIC-DENTAL CHAIRSIDE ASSISTANT LAB - POINT OF CA RE ORDERABLES
--- OUTSIDE RECORDS SUMMARY | 2024-06-10 22:13 | XMS_ITS | Encounter Summary ---
Author Organization [facility] Address [address] [place] [address] Care Team Providers Care Safety Instructor Name Role Phone Unavailable Primary Care Provider Unavailabl e Encounter Details Date Type Department Care Team (Late st Contact Info) Description 05/31/2020 Lab Requisition [facility] Community Testing [facility] [address] [place] [address] [place] [address] [place] [address] Social History Tobacco Use Types Packs/Day Years [...] Diagnosis Comments SARS-COV-2 PCR [facility] ONLY Routine 05/31/2020 10:21 AM GEOCHEMISTRY TEACHER documented in this encounter Visit Diagnoses Not on filedocumented in this encounter
--- OUTSIDE RECORDS SUMMARY | 2024-06-10 22:13 | XMS_ITS | Referral Summary ---
Author Organization [facility] Address [address] [facility] [address] Care Team Providers Care Light Rail Transit Operator Name Role Phone Unavailable Primary Care Provider Unavailabl e Source Comments [facility],non-owned Affiliates and Associated Physician Practices is amultiple site organization consisting of ambulatory clinics and hospital sitesin [place], [place], [place] and [place]. This disclosure is being madepursuant to the Care Everywhere program and may not contain all information available regarding this patient. Last updated 18.[facility] Allergies No known active allergies Medications * [...] needed for Cough 30 capsule 07/07/2018 Active Social History Tobacco Use Types Packs/Day Years Used Date Smoking Tobacco: Former Smokeless Tobacco: Never Sex and Gender Information Value Date Recorded Sex Assigned at Not on file Gender Identity Not on file Sexual Orientation Not on file Last Filed Vital Signs Vital Sign Reading Time Taken Comments Blood Pressure 112/76 07/07/2018 10:50 AM TELEMARKETING FUNDRAISER Pulse 87 07/07/2018 10:50 AM TELEMARKETING FUNDRAISER Temperature 37.2 ??C (98.9 ??F) 07/07/2018 10:[address] Respiratory Rate 16 07/07/2018 10:50 AM TELEMARKETING FUNDRAISER Oxygen Saturation 98% 07/07/2018 10:50 AM TELEMARKETING FUNDRAISER Inhaled Oxygen Concentration - - Weight 85.3 kg (188 lb) 07/07/2018 10:50 AM TELEMARKETING FUNDRAISER Height 157.5 cm (5' 2 ) 07/07/2018 10:50 AM TELEMARKETING FUNDRAISER Body Mass Index 34.39 07/07/2018 10:50 AM TELEMARKETING FUNDRAISER Plan of Treatment Not on file
--- OUTSIDE RECORDS SUMMARY | 2024-06-10 22:13 | XMS_ITS | Encounter Summary ---
Author Organization [facility] Address [address] [place] [address] Care Team Providers Care Dredging Inspector Name Role Phone Unavailable Primary Care Provider Unavailabl e Encounter Details Date Type Department Care Team (Late st Contact Info) Description 04/08/2020 Lab Requisition [facility] Community Testing [facility] [address] [place] [address] [place] [address] [place] [address] Social History Tobacco Use Types Packs/Day Years [...] Diagnosis Comments SARS-COV-2 PCR [facility] ONLY Routine 04/08/2020 9:39 AM CDT documented in this encounter Visit Diagnoses Not on filedocumented in this encounter
--- OUTSIDE RECORDS SUMMARY | 2024-06-10 22:13 | XMS_ITS | Encounter Summary ---
Author Organization [facility] Address [address] [place] [address] Care Team Providers Care Insurance Administrative Assistant Name Role Phone Unavailable Primary Care Provider Unavailabl e Encounter Details Date Type Department Care Team (Late st Contact Info) Description 06/19/2020 3:30 PM CLUB CONCIERGE Rapid Evaluation [facility] Community Testing [address] [address] Social History Tobacco Use Types Packs/Day Years [...] COVID-19? No / Unsure 06/21/2020 9:12 AM CLUB CONCIERGE documented as of this encounter Plan of Treatment Not on file documented as of this encounter Visit Diagnoses Not on filedocumented in this encounter
== END 2024-06-03 08:51 | disposition home or self-care (01) ==
LOC: ANHIMG 08:52
PROVIDERS: PCP Family Medicine; Visit Provider Advanced Practice Midwife
DX: Z12.31 Encounter for screening mammogram for malignant neoplasm of breast (principal)
CPT/HCPCS: 77063; 77067

== ENCOUNTER 2025-06-06 07:48 | Outpatient (CLI) | payer BC, SELFPAY ==
--- NOTE | ~2025-06-06 | MM_ITS ---
EXAMINATION: MM screening [facility] BI w [facility] HISTORY: Screening TECHNIQUE: Craniocaudal and mediolateral oblique 3-D tomosynthesis images were obtained and synthetic 2-D images were generated. CAD analysis was submitted and interpreted. COMPARISON: Comparison to multiple prior studies sequentially, with oldest reviewed study dated 07/20/2020. BREAST PARENCHYMAL COMPOSITION: Not dense: There are scattered areas of fibroglandular density. FINDINGS: There is no evidence of suspicious mass, calcification, or architectural distortion to suggest malignancy in either breast. There has been no suspicious interval change. IMPRESSION: 1. No mammographic evidence of malignancy. 2. Recommend routine screening mammography in one year. BI-RADS Category 1: Negative Reviewed, dictated and finalized at location [facility] [facility]
--- OUTSIDE RECORDS SUMMARY | 2025-06-06 07:52 | XMS_ITS | Clinical Summary ---
Author Organization [facility] [address] Address [address] [place] [id number] Care Team Providers Care Traffic Supervisor Name Role Phone Carlos Patel MD Primary Care Provider [phone] Jennifer Rao MD Unavailable [phone] Vinny Hopkins MD Unavailable [phone] Allergies No known active allergies Medications cetirizine (ZyrTEC) 10 mg capsule 04/29/2020 Active oxyBUTYnin XL (DITROPAN-XL) 10 mg 24 hr tablet Take 1 tablet (10 mg total) by mouth daily 06/23/2023 Active MULTIVITAMIN ORAL Take by mouth Active biotin 5 mg tablet Take by mouth Active ergocalciferol (VITAMIN D) 50,000 unit capsule 05/23/2024 Active Active Problems Problem Noted Date Diagnosed Date Vitamin D deficiency 07/31/2023 Encounter for medical examination to establish c are 07/31/2023 Assessment & Plan (07/31/2023 3:48 PM CASING OPERATOR): A(n) initial well visit to establish care has been performed today. Clary Zaragoza is up to date on screening tests. She is in need of None- no screening indicated at this time- she has had multiple colonoscopies; seeing Dr. Hopkins. The last one was a year ago. She is not up to date on needed preventative vaccinations; She is in need of Covid-19 (booster). We discussed healthy lifestyle habits, educational material has been given. Medications reviewed, changes documented as per the medical record and discussed with patient along with risks vs benefits. Return in 1 year Immunizations Immunization Administration Dates Next Due Influenza, Quadrivalent, Spl it, Preservative Free, Intramuscular 03/24/2021,03/27/2020 Influenza, Trivalent, IM (MDV) 03/18/2013 Influenza, Trivalent, Preser vative Free, Intramuscular 02/15/2016 Influenza, Unspecified 08/20/2024(Deferr ed: Patient Refused),06/13/2023,06/12/2023(Deferre d: Patient Refused),06/13/2022(Deferred: Patient Refused),06/12/2022(Deferred: Patient Refused),06/13/2021(Deferred: Patient Refused) Tdap 01/02/2023 Surgical History Surgery Date Site/Laterality Comments LASIK 10/1999 TONSILLECTOMY 06/12/1990 - 06/11/1991 ESSURE TUBAL LIGATION 06/12/2013 - 06/11/2014 Medical History Medical History Date Comments Hearing loss 2019 Family History Medical History Relation Name Comments No Known Problems Brother 1 No Known Problems Father No Known Problems Maternal Grandfather Bipolar disorder Maternal Grandmother thiago Mental illness Maternal Grandmother thiago Colon cancer Mother cora Sanders Syndrome Mother cora Alzheimer's disease Paternal Grandfather Juliocesar Andrews No Known Problems Paternal Grandmother No Known Problems Sister Relation Name Status Comments Brother 1 Alive Brother 2 Alive Brother 3 Alive Father Alive Maternal Grandfather Maternal Grandmother thiago Mother cora Paternal Grandfather Juliocesar Andrews Paternal Grandmother Sister Alive Social History Tobacco Use Types Packs/Day Years Used Date Smoking Tobacco: Never Passive Smoke Exposure: Never Smokeless Tobacco: Never Tobacco Cessation:Counseling Given: Not Answered Comments:i smoked some in high school....1993....but was never a serious smoker AUDIT-C Answer Date Recorded Q1: How often do you have a drink containing alc ohol? 2-4 times a month 08/20/2024 Q2: How many drinks containi ng alcohol do you have on a typical day when you are drinking? 1 or 2 08/20/2024 Q3: How often do you have si x or more drinks on one occasion? 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 Not on file Not on file Not on file Last Filed Vital Signs Vital Sign Reading Time Taken Comments Blood Pressure 114/80 08/20/2024 3:32 PM CDT Pulse 78 08/20/2024 3:32 PM CDT Temperature 36 C (96.8 F) 08/20/2024 3:32 PM CDT Respiratory Rate 16 08/20/2024 3:32 PM CDT Oxygen Saturation 98% 08/20/2024 3:32 PM CDT Inhaled Oxygen Concentration - - Weight 89.8 kg (198 lb) 08/20/2024 3:32 PM CDT Height 157.5 cm (5' 2) 08/20/2024 3:32 PM CDT Body Mass Index 36.21 08/20/2024 3:32 PM CDT Plan of Treatment Health Maintenance Due Date Last Done Comments Covid-19 Vaccine ( season) 2025 05/20/2021, 07/31/2020, 07/10/2020 Influenza Vaccine (#1) 2025 , 03/24/2021, 03/27/2020, Additional history exists Breast Cancer Screening-Mammogram 06/03/2025 06/03/2024 Depression Screening 08/20/2025 08/20/2024, 07/31/19 24 Regular Well Visit/Exam 18-64 08/20/2025 08/20/2024, 07/31/2023 Cervical Cancer Screening 06/11/20262023, 12/01/2022, 11/28/2022 Postponed from 12/03/2024 (Patient declined, but will receive in the future) Colon Cancer Screening-Colonoscopy 06/11/2026 Postponed from 1976 (Patient declined, but will receive in the future) DTaP/Tdap/Td Vaccine (2 - Td or Tdap) 01/02/2033 01/02/2023 Hepatitis B Screening Completed 08/20/2024 Hepatitis C Screening Completed 08/20/2024 Pneumococcal vaccine <65 Aged Out No longer eligible based on patient's age to complete this topic Procedures Procedure Name Priority Date/Time Associated Diagnosis Comments HEPATITIS C ANTIBODY Routine 08/20/2024 4:01 PM CDT Need for hepatitis C screening test MAMMOGRAPHY Routine 06/03/2024 1:46 PM CASING OPERATOR PAP SMEAR Routine 12/04/2023 from Last 3 Months or Most Recently Relevant to Health Maintenance Results * Hepatitis C antibody Blood (08/20/2024 4:01 PM CDT) Hep C Ab Nonreactive Nonreactive Comment: Interpretive Data Nonreactive: Antibodies to HCV not detected. Does NOT exclude the possibility of recent exposure to HCV. Equivocal: Equivocal for HCV antibodies. Supplemental molecular testing will be automatically performed to determine infection status in accordance with current CDC screening recommendations. Reactive: Positive for HCV antibodies. This may represent current or past HCV infection. Supplemental molecular testing will be automatically performed to determine current infection status in accordance with current CDC screening recommendations. Interpretive data was last revised on 2019. Blood 08/20/2024 4:01 PM CDT 08/20/2024 8:19 PM CDT Carlos Patel MD LAB MICROBIOLOGY - GENERAL ORDERABLES Final Result Performing Organization Address City/State/[facility] Phone Number [facility] [id number] [address] Department of Laboratories [place], [place] [phone] * MAMMOGRAPHY (06/03/2024 1:46 PM CASING OPERATOR) us Lina Gonogra CNM HEALTH MAINTENANCE Final Result * PAP SMEAR (12/04/2023) us Zunilda Spangler MD HEALTH MAINTENANCE Final Result from Last 3 Months or Most Recently Relevant to Health Maintenance Insurance [employer] [place] Care Teams Traffic Supervisor Relationship Specialty Start Date End Date Carlos Patel MD [address] [facility] [address] [place] [address] PCP - General Family Medicine 07/31/23 Jennifer Rao MD [address] [facility] [address] [place], [place] [id number] Referring Physician Gynecology 07/31/23 Vinny Hopkins MD [address] [facility] [address] [place] [address] Referring Physician Gastroenterology 07/31/23
--- OUTSIDE RECORDS SUMMARY | 2025-06-06 07:52 | XMS_ITS | Clinical Summary ---
Author Organization [employer] [facility] Address [address] [place] [address] Care Team Providers Care Continuous Process Machine Operator Name Role Phone No, Pcp SKIVER BOX TOE Primary Care Provider Unavailabl e Social History Tobacco Use Types Packs/Day Years Used Date Smoking Tobacco: Never Assessed Comments Unknown Sex and Gender Information Value Date Recorded Sex Assigned at Not on file Legal Sex Female 9:29 AM EST Gender Identity Not on file Sexual Orientation Not on file Plan of Treatment Not on file Medical Devices Not on file Insurance [facility] Care Teams Continuous Process Machine Operator Relationship Specialty Start Date End Date No, Pcp, SKIVER BOX TOE N/A Do not use PCP - General Family Medicine 06/01/20
--- OUTSIDE RECORDS SUMMARY | 2025-06-06 07:52 | XMS_ITS | Clinical Summary ---
Author Organization [facility] Address [address] [place] [address] Care Team Providers Care Stencil Cutter Name Role Phone Unavailable Primary Care Provider [...] Cervical Cancer Screening (CCS) 2006 HPV/Cotest 2006 Cologuard 2021 Colonoscopy 2021 Colorectal Cancer Screening 2021 Immunochemical Fecal Occult Blood 2021 Influenza Immunization (#1) 02/10/202503/12, 02/15/2016, 03/18/2013 SARS-COV-2 Immunization ( season) 2025 05/20/2021, 07/31/2020, 07/10/2020 Respiratory Syncytial Virus (RSV) Immunization (Adult) (1 - 1-dose 75+ series) 08/17/2051 Human Papillomavirus (HPV) Immunization Aged Out No longer eligible b ased on patient's age to complete this topic Meningococcal Immunization (ACWY) Aged Out No longer eligible b ased on patient's age to complete this topic Pneumococcal Immunization Combined Aged Out No longer eligible b ased on patient's age to complete this topic Rotavirus Immunization Aged Out No lo nger eligible based on patient's age to complete this topic Insurance [facility] [employer] on file
== END 2025-06-06 07:49 | disposition home or self-care (01) ==
LOC: ANHFOHIMG 07:50
PROVIDERS: PCP Family Medicine; Visit Provider Obstetrics & Gynecology Gynecology
DX: Z12.31 Encounter for screening mammogram for malignant neoplasm of breast (principal)
CPT/HCPCS: 77063; 77067